=== PATIENT | male | born 1990 | race African-American/Black ===

== ENCOUNTER 2021-07-22 08:21 | Emergency (ER) | payer MEDICAID ==
[~2021-07-22] VITALS: Ht 172.7 cm; Wt 81.0 kg
[2021-07-22] MEDS ORDERED: TOPUD PO (09:43)
[2021-07-22] MEDS ORDERED: IBUP-2028 MT (09:43)
[2021-07-22 10:00] VITALS: BP 130/87
== END 2021-07-22 10:00 | disposition home or self-care (01) ==
LOC: ER 08:21
DX: S60.051A Contusion of right little finger without damage to nail, initial encounter (principal); W18.39XA Other fall on same level, initial encounter; Y93.89 Activity, other specified; Y92.89 Other specified places as the place of occurrence of the external cause; Y99.8 Other external cause status
CPT/HCPCS: 73140; 99283

== ENCOUNTER 2022-04-11 16:10 | Emergency (ER) | payer MEDICAID ==
[~2022-04-11] VITALS: Ht 172.7 cm; Wt 77.0 kg
[~2022-04-11 16:10] MED LIST: IBUP-2028 MT; TOPUD PO
[2022-04-11 16:23] VITALS: BP 118/67
[2022-04-11] MEDS ORDERED: IBUPROFEN 400MG TABLET PO ONE (17:15)
[2022-04-11] MEDS ORDERED: CEPH500C2 MT (17:20)
[2022-04-11] MEDS ORDERED: IBUP-2028 MT (17:20)
[2022-04-11] MEDS ORDERED: TETANUS, DIPHTHERIA, PERTUSSIS VAC/PF 0.5ML (>10YR OLD) IM ONE (17:30)
== END 2022-04-11 18:00 | disposition home or self-care (01) ==
LOC: ER 16:10
DX: M79.644 Pain in right finger(s) (principal); M32.9 Systemic lupus erythematosus, unspecified; Z87.828 Personal history of other (healed) physical injury and trauma
CPT/HCPCS: 73130; 90471; 90715; 99283